=== PATIENT | female | born 1965 | race Caucasian/White ===

== ENCOUNTER 2020-11-04 23:42 | Emergency (ER) | payer BC ==
[2020-11-05] MEDS ORDERED: KETOROLAC 15 MG/ML VIAL IVP STA
[2020-11-05] MEDS ORDERED: ONDANSETRON 4 MG/2 ML VIAL IVP STA
[2020-11-05] MEDS ORDERED: SODIUM CHLORIDE 0.9% 1,000 ML IV STA
[2020-11-05 00:09] LABS: BILIRUBIN,URINE NEGATIVE (NEGATIVE); GLUCOSE, URINE (UA) NEGATIVE (NEGATIVE); KETONES,URINE (UA) NEGATIVE (NEGATIVE); LEUKOCYTE ESTERASE, URINE NEGATIVE (NEGATIVE); NITRITE,URINE NEGATIVE (NEGATIVE); OCCULT BLOOD,URINE NEGATIVE (NEGATIVE); PH,URINE 6.5 PH (5.0-7.5); PROTEIN,URINE NEGATIVE (NEGATIVE); UROBILINOGEN,URINE 0.2 (NORMAL) E.U./dL (NORMAL)
[2020-11-05 00:10] LABS: CLARITY,URINE CLEAR (CLEAR)
[2020-11-05 00:23] LABS: BASOPHILS # (AUTO) 0.1 10^3/uL (0.0-0.1); BASOPHILS % (AUTO) 0.9 %; EOSINOPHILS # (AUTO) 0.2 10^3/uL (0.0-0.7); EOSINOPHILS % (AUTO) 2.9 %; HCT - HEMATOCRIT 41.6 % (37.0-47.0); HGB - HEMOGLOBIN 14.3 g/dL (12.0-16.0); LYMPHOCYTES # (AUTO) 3.6 10^3/uL (1.5-3.5); LYMPHOCYTES % (AUTO) 46.2 %; MEAN CORPUSCULAR HEMOGLOBIN 31.4 pg (27.0-31.0); MEAN CORPUSCULAR HGB CONC 34.4 g/dL (32.0-36.0); MEAN CORPUSCULAR VOLUME 91.4 fL (81.0-99.0); MONOCYTES # (AUTO) 0.6 10^3/uL (0.0-1.0); MONOCYTES % (AUTO) 7.8 %; NEUTROPHILS # (AUTO) 3.2 10^3/uL (1.5-6.6); NEUTROPHILS % (AUTO) 41.9 %; PLT - PLATELET COUNT 257 10^3/uL (130-450); RED BLOOD COUNT 4.55 10^6/uL (4.20-5.40); RED CELL DISTRIBUTION WIDTH 12.2 % (12.0-15.0); WHITE BLOOD COUNT 7.7 x10^3/uL (4.8-10.8)
[2020-11-05 00:33] VITALS: BP 111/71
[2020-11-05 00:36] LABS: ALBUMIN 4.2 g/dL (3.2-5.5); ALBUMIN/GLOBULIN RATIO 1.3 (1.0-2.2); BILIRUBIN,TOTAL 0.7 mg/dL (0.2-1.0); CALCIUM 9.1 mg/dL (8.5-10.3); CREATININE 0.9 mg/dL (0.4-1.0); POTASSIUM 3.6 mmol/L (3.5-5.0); TOTAL PROTEIN 7.5 g/dL (6.7-8.2)
--- NOTE | 2020-11-05 00:45 | ED Physician Documentation ---
History of Present Illness - Stated complaint Stated Complaint: BACK/ABD PX/NAUSEA - Chief complaint Chief Complaint: Abd Pain - History obtained from History obtained from: Patient - Additonal information Additional information: 55-year-old woman with past medical history of kidney stones, chronic back pain, presents with lower back pain for the past week that she has been treating with BenGay and lidocaine patches with some relief, increasing in severity this evening so that it is sharp, cramping, associated with nausea, moving to the right lower abdominal area. Patient is concerned that she may have a kidney stone. Also with increased urinary frequency and dysuria. Review of Systems Ten Systems: 10 systems reviewed and negative Constitutional: denies: Fever, Chills GI: reports: Abdominal Pain, Nausea. denies: Vomiting, Diarrhea : reports: Dysuria, Frequency Musculoskeletal: reports: Back pain PD PAST MEDICAL HISTORY - Past Medical History Past Medical History: Yes : Kidney stones - Past Surgical History Past Surgical History: Yes General: Cholecystectomy - Present Medications Home Medications: Ambulatory Orders Medication Instructions Recorded Confirmed Ketorolac [Toradol] 10 mg PO Q6H PRN #30 tablet 11/05/20 - Allergies Allergies/Adverse Reactions: Allergies Allergy/AdvReac Type Severity Reaction Status Date / Time No Known Drug Allergies Allergy Verified 11/04/20 23:55 - Social History Does the pt smoke?: No Smoking Status: Never smoker Does the pt drink ETOH?: No Does the pt have substance abuse?: No - Immunizations Immunizations are current?: Yes PD ED PE NORMAL - Vitals Vital signs reviewed: Yes - General General: Alert and oriented X 3, No acute distress, Well developed/nourished - HEENT HEENT: Atraumatic, PERRL, EOMI - Neck Neck: Supple, no meningeal sign - Cardiac Cardiac: RRR - Respiratory Respiratory: No respiratory distress, Clear bilaterally - Abdomen Abdomen: Non tender, Non distended - Back Back: No CVA TTP, Other (R lower back discomfort to palpation in muscle distribution) - Derm Derm: Normal color, Warm and dry - Extremities Extremities: No deformity - Neuro Neuro: Alert and oriented X 3 Results - Vitals Vitals: Vital Signs - 24 hr 11/04/20 11/04/20 11/05/20 23:55 23:58 00:32 Temperature 36.3 C L 36.3 C L Heart Rate 79 79 65 Respiratory 22 22 18 Rate Blood Pressure 135/87 H 135/87 H 111/71 O2 Saturation 97 97 95 11/05/20 00:49 Temperature 36.4 C L Heart Rate 65 Respiratory 18 Rate Blood Pressure 111/71 O2 Saturation 96 Oxygen O2 Source Room air - Labs Labs: Laboratory Tests 11/04/20 11/05/20 11/05/20 23:58 00:02 00:02 WBC 7.7 RBC 4.55 Hgb 14.3 Hct 41.6 MCV 91.4 MCH 31.4 H MCHC 34.4 RDW 12.2 Plt Count 257 MPV 11.0 H Neut # (Auto) 3.2 Lymph # (Auto) 3.6 H [place] # (Auto) 0.6 Eos # (Auto) 0.2 Baso # (Auto) 0.1 Absolute Nucleated RBC 0.00 Nucleated RBC % 0.0 Sodium 137 Potassium 3.6 Chloride 100 L Carbon Dioxide 26 Anion Gap 11.0 BUN 16 Creatinine 0.9 Estimated GFR (MDRD) 65 L Glucose 126 H Calcium 9.1 Total Bilirubin 0.7 AST 22 ALT 21 Alkaline Phosphatase 75 Total Protein 7.5 Albumin 4.2 Globulin 3.3 Albumin/Globulin Ratio 1.3 Lipase 38 Urine Color YELLOW Urine Clarity CLEAR Urine pH 6.5 Ur Specific [place] 1.010 Urine Protein NEGATIVE Urine Glucose (UA) NEGATIVE Urine Ketones NEGATIVE Urine Occult Blood NEGATIVE Urine Nitrite NEGATIVE Urine Bilirubin NEGATIVE Urine Urobilinogen 0.2 (NORMAL) Ur Leukocyte Esterase NEGATIVE Ur Microscopic Review NOT INDICATED Urine Culture Comments NOT INDICATED PD MEDICAL DECISION MAKING - ED course ED course: pain improved from 8/10 to 4/10 with toradol. nausea resolved. patient already has zofran and percoset script. provided toradol. return precautions given. plan to f/u with pmd. Departure - Departure Disposition: Home, Self Care Clinical Impression: Back pain, Nausea Condition: Good Instructions: ED Spasm Back No Trauma Prescriptions: Ketorolac [Toradol] 10 mg PO Q6H PRN #30 tablet PRN Reason: Pain Comments: You were seen in the emergency department for back pain and nausea. Your urine showed no blood or signs of infection, which points away from kidney stones as the cause. You have pain in a muscle distribution that we treated with toradol. I am providing a prescription to go home with. You should not take ibuprofen, motrin, advil, or other NSAIDs within 6 hours of taking toradol. Please call and make a follow up appointment with your primary doctor and return to the emergency department if you have any new or worsening symptoms or other concerns. Discharge Date/Time: 11/05/20 01:26
--- NOTE | 2020-11-05 14:44 | ED Physician Documentation ---
ED Addendum - Addendum Addendum: 11/05/20 14:44 Took call from pharmacist, she was uncomfortable prescribing Toradol for that length of time, changed the number to #20.
== END 2020-11-05 01:26 | disposition home or self-care (01) ==
LOC: ED 23:42
DX: M54.5 Low back pain (principal); R11.0 Nausea
CPT/HCPCS: 36415; 80053; 81001; 81003; 83690; 85025; 87086; 96361; 96374; 96375; 99283

== ENCOUNTER 2022-06-15 09:27 | Outpatient (CLI) | payer BC ==
--- NOTE | 2022-06-16 10:17 | Mammography Report ---
BILATERAL DIGITAL SCREENING MAMMOGRAM 3D/2D: 06/15/2022 CLINICAL: Routine screening. Comparison is made to exams dated: 02/25/2013 mammogram and 05/13/2011 mammogram - [facility]. Both breasts are heterogeneously dense, which may obscure small masses (category c / 51-75% glandular tissue). No significant masses, calcifications, or other findings are seen in either breast. There has been no significant interval change. IMPRESSION: NEGATIVE There is no mammographic evidence of malignancy. A 1 year screening mammogram is recommended. Based on the Tyrer Cuzick model (a risk assessment model) the patients lifetime risk is 12.4% and he r 10 year risk is 3.8%. According to the ACR, ACS, and NCCN guidelines, an annual breast MRI exam montse ng with mammogram is recommended if the patients lifetime risk is 20% or greater. This exam was interpreted at Station ID: [id number]. NOTE: For mammograms, a report in lay terms will be sent to the patient. Approximately 15% of breast malignancies will not be visualized mammographically. In the management of a palpable breast mass, a negative mammogram must not discourage biopsy of a clinically suspicious lesion. Electronically Signed By: Ronnie reyes/meek:06/16/2022 07:33:05 letter sent: No_Letter ACR BI-RADS Category 1: Negative 3341F PARENCHYMAL PATTERN: (D) - The breast(s) demonstrate(s) heterogeneously dense fibroglandular brittney grigsby. BI-RADS CATEGORY: (1) - 1 Mammogram [id number] 1 year screening LATERALITY: (B)
== END 2022-06-15 09:28 | disposition home or self-care (01) ==
LOC: DI.N 09:27
DX: Z12.31 Encounter for screening mammogram for malignant neoplasm of breast (principal)

== ENCOUNTER 2023-07-15 08:10 | Outpatient (CLI) | payer BC ==
[~2023-07-15 08:10] MED LIST: GADOTERATE MEGLUMINE 10 MMOL/20 ML VIAL ONE; GADOTERATE MEGLUMINE 5 MMOL/10 ML VIAL ONE
[2023-07-15] MEDS: GADOTERATE MEGLUMINE 10 MMOL/20 ML VIAL IVP ONE (09:05)
--- NOTE | 2023-07-17 09:35 | MRI Report ---
PROCEDURE: Abdomen W/WO INDICATIONS: PANCREATIC LESION CONTRAST: CLARISCAN 21.8 ML TECHNIQUE: Coronal ultra fast SE, axial 2D spoiled GE in- and [id number]; axial breath-hold T2 fast SE. Dynam ic axial ultra fast GE during the administration of contrast; post-contrast coronal ultra fast GE or 2D spoiled GE with fat saturation from the hepatic dome to the iliac crests. Optional diffusion weig hted imaging and ADC may be performed. COMPARISON: 03/26/[address] FINDINGS: Image quality: Diagnostic Lower chest: Lungs are not well evaluated MRI. No dense consolidation or pleural effusion Liver: No suspicious hypervascular lesion. Right lobe liver cyst is seen. Hepatic steatosis. Possible left lobe hemangioma. Gallbladder and biliary system: Gallbladder is absent. Biliary system is ectatic and the postsurgical state, likely physiologic Pancreas: No ductal dilation. No suspicious hypervascular lesion. No enhancing soft tissue nodule. Po sterior pancreatic body cystic lesion again seen measuring up to 1.4 cm (09/29). This is similar to pr ior in 2022 This is new compared to 2009. This probably connects to the pancreatic duct. Spleen: Nonenlarged Adrenals: No discrete nodules Kidneys: No solid mass or hydronephrosis Vessels and lymph nodes: No pathologic lymph nodes by size criteria. No abdominal aortic aneurysm. Th e main portal vein is patent Bowel and peritoneum: No evidence of small bowel obstruction. No pathologic ascites. Body wall: Unremarkable Bones: No acute or suspicious osseous finding. IMPRESSION: Compared to 2022, stable posterior pancreatic body 1.4 cm cystic lesion, without enhancing soft tissu e nodule or ductal dilation. This probably connects to the duct. Consider continued imaging follow-up for this probable IPMN annually for at least 5 years (following this, every 2 years for a total of 9 years assuming stability) per white paper guidelines. Reviewed by: Devonte Crowe MD on 07/17/2023 9:33 AM PDT Approved by: Devonte Crowe MD on 07/17/2023 9:33 AM PDT Station ID: [id number]
== END 2023-07-15 08:11 | disposition home or self-care (01) ==
LOC: DI 08:10
PROVIDERS: ATTEND Physician Assistant
DX: K86.9 Disease of pancreas, unspecified (principal)
CPT/HCPCS: 74183; A9575

== ENCOUNTER 2023-10-09 08:16 | Outpatient (CLI) | payer BC ==
[2023-10-09 08:39] LABS: BASOPHILS # (AUTO) 0.1 10^3/uL (0.0-0.1); EOSINOPHILS # (AUTO) 0.2 10^3/uL (0.0-0.7); EOSINOPHILS % (AUTO) 3.3 %; HCT - HEMATOCRIT 45.3 % (37.0-47.0); HGB - HEMOGLOBIN 15.1 g/dL (12.0-16.0); LYMPHOCYTES # (AUTO) 2.2 10^3/uL (1.5-3.5); LYMPHOCYTES % (AUTO) 42.3 %; MEAN CORPUSCULAR HEMOGLOBIN 30.7 pg (27.0-31.0); MEAN CORPUSCULAR HGB CONC 33.3 g/dL (32.0-36.0); MEAN CORPUSCULAR VOLUME 92.1 fL (81.0-99.0); MEAN PLATELET VOLUME 11.7 fL (7.9-10.8); MONOCYTES # (AUTO) 0.4 10^3/uL (0.0-1.0); MONOCYTES % (AUTO) 7.7 %; NEUTROPHILS # (AUTO) 2.4 10^3/uL (1.5-6.6); NEUTROPHILS % (AUTO) 45.5 %; PLT - PLATELET COUNT 246 10^3/uL (130-450); RED BLOOD COUNT 4.92 10^6/uL (4.20-5.40); RED CELL DISTRIBUTION WIDTH 11.9 % (12.0-15.0); WHITE BLOOD COUNT 5.2 x10^3/uL (4.8-10.8)
[2023-10-09 08:48] LABS: ALBUMIN 4.2 g/dL (3.2-5.5); ALBUMIN/GLOBULIN RATIO 1.5 (1.0-2.2); ALKALINE PHOSPHATASE 80 IU/L (42-121); ALT ALANINE AMINOTRANSFERASE 13 IU/L (10-60); AST ASPARTATE AMINOTRANSFERASE 13 IU/L (10-42); BILIRUBIN,TOTAL 0.5 mg/dL (0.2-1.0); BUN - BLOOD UREA NITROGEN 13 mg/dL (6-20); CALCIUM 9.4 mg/dL (8.5-10.3); CARBON DIOXIDE - CO2 30 mmol/L (21-32); CHLORIDE 104 mmol/L (101-111); CHOL/HDL RATIO 6.1 (<4.4); CHOLESTEROL 251 mg/dL; CREATININE 0.8 mg/dL (0.6-1.3); GFR - MDRD 74 (>89); GLUCOSE 121 mg/dL (74-104); HDL CHOLESTEROL 41 mg/dL; LDL CHOLESTEROL,CALCULATED 162 mg/dL; SODIUM 139 mmol/L (135-145); TRIGLYCERIDES 238 mg/dL; VLDL CHOLESTEROL 48 mg/dL
[2023-10-09 08:58] LABS: THYROID STIMULATING HORMONE 1.63 uIU/mL (0.34-5.60)
== END 2023-10-09 08:17 | disposition home or self-care (01) ==
LOC: LAB 08:16
PROVIDERS: ATTEND Physician Assistant
DX: E78.5 Hyperlipidemia, unspecified (principal); Z13.9 Encounter for screening, unspecified
CPT/HCPCS: 36415; 80053; 80061; 83721; 84443; 85025